=== PATIENT | male | born 1970 | race Caucasian/White ===

== ENCOUNTER 2018-01-16 18:35 | Emergency (ER) | payer SELFPAY ==
[~2018-01-16] VITALS: Ht 180.3 cm; Wt 72.6 kg
[2018-01-16 18:35] VITALS: BP 130/78
[2018-01-16 19:35] VITALS: BP 125/77
== END 2018-01-16 19:35 ==
LOC: MED 18:35
DX: R07.89 Other chest pain (principal); F17.210 Nicotine dependence, cigarettes, uncomplicated; Z02.89 Encounter for other administrative examinations
CPT/HCPCS: 93005; 99283